=== PATIENT | male | born 1970 | race Hispanic/Latino ===

== ENCOUNTER 2018-07-29 13:58 | Emergency (ER) | payer BC ==
[2018-07-29 14:12] VITALS: RESP 18; BMI 39.0
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
[2018-07-29 15:37] LABS: BASO # 0.03 K/mm3 (0.0-2.0); BASO % 0.4 % (0.0-3.0); EOS # 0.2 (0.0-0.7); EOS % 2.1 % (1.5-5.0); GRAN # 5.07 (1.4-6.5); GRAN % 65.2 % (50.0-68.0); HEMOGLOBIN 14.9 g/dL (14.0-18.0); LYMPH # 1.9 (1.2-3.4); LYMPH % 24.6 % (22.0-35.0); MEAN CELL VOLUME 82.7 fl (80.0-105.0); MEAN CORPUSCULAR HGB CONC 33.8 g/dl (31.0-37.0); MEAN PLATELET VOLUME 10.9 fl (7.0-11.0); MONO # 0.6 (0.1-0.6); MONO % 7.7 % (1.0-6.0); RBC 5.33 10^6/uL (3.5-6.1); RED CELL DISTRIBUTION WIDTH 13.1 % (11.5-14.5); WHITE BLOOD COUNT 7.8 10^3/ul (4.5-11.0)
[2018-07-29 15:45] LABS: ALB/GLOB RATIO 1.3 (1.1-1.8); ALBUMIN 4.2 g/dL (3.0-4.8); ALT/SGPT 32 U/L (7-56); AST/SGOT 21 U/L (17-59); BLOOD UREA NITROGEN 19 mg/dL (7-21); CALCIUM 9.1 mg/dL (8.4-10.5); GFR NON-AFRICAN AMERICAN > 60; INR 1.09; PARTIAL THROMBOPLASTIN TIME 33.4 Seconds (25.1-36.5); PROTHROMBIN TIME 12.4 SECONDS (9.4-12.5)
[2018-07-29 17:03] VITALS: BP 132/86; PULSE 86; TEMP 97.5; O2SAT 100
--- NOTE | 2018-07-29 17:11 | US ---
HISTORY: Leg pain and swelling. Evaluate for DVT PHYSICIAN(S): Jerry Pitts MD. TECHNIQUE: Duplex sonography and color-flow Doppler with graded compression were used to evaluate the deep venous systems of both lower extremities. FINDINGS: The visualized deep venous systems of both lower extremities are sonographically normal and compressible. Normal wave forms and augmentation are seen. There is no sonographic evidence for deep venous thrombosis in the visualized segments of both lower extremities. IMPRESSION: No sonographic evidence for deep venous thrombosis in the visualized segments of both lower extremities.
== END 2018-07-29 17:42 | disposition home or self-care (01) ==
LOC: ED 13:58
DX: R25.2 Cramp and spasm (principal); R79.1 Abnormal coagulation profile; Z86.718 Personal history of other venous thrombosis and embolism; Z79.01 Long term (current) use of anticoagulants; Z74.01 Bed confinement status; Z99.3 Dependence on wheelchair

== ENCOUNTER 2019-01-06 12:41 | Inpatient (IN) | payer BC ==
[2019-01-06 12:55] VITALS: BMI 31.1
[2019-01-06 13:38] LABS: BASO # 0.03 K/mm3 (0.0-2.0); BASO % 0.4 % (0.0-3.0); EOS # 0.2 (0.0-0.7); EOS % 2.2 % (1.5-5.0); HEMOGLOBIN 15.1 g/dL (14.0-18.0); LYMPH # 2.1 (1.2-3.4); LYMPH % 24.4 % (22.0-35.0); MEAN CELL VOLUME 83.4 fl (80.0-105.0); MEAN CORPUSCULAR HEMOGLOBIN 28.1 pg (25.0-35.0); MEAN CORPUSCULAR HGB CONC 33.7 g/dl (31.0-37.0); MEAN PLATELET VOLUME 10.4 fl (7.0-11.0); MONO # 0.7 (0.1-0.6); RBC 5.37 10^6/uL (3.5-6.1); RED CELL DISTRIBUTION WIDTH 12.9 % (11.5-14.5); WHITE BLOOD COUNT 8.5 10^3/uL (4.5-11.0)
[2019-01-06 13:40] LABS: VENOUS BLOOD GAS BASE EXCESS 3.7 mmol/L (0.0-2.0); VENOUS BLOOD GAS PO2 44 mm/Hg (30-55); VENOUS BLOOD PH 7.39 (7.32-7.43)
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
[2019-01-06 13:49] LABS: INR 1.26; PARTIAL THROMBOPLASTIN TIME 43.4 Seconds (26.9-38.3)
[2019-01-06 13:50] LABS: ALB/GLOB RATIO 1.2 (1.1-1.8); ALBUMIN 4.3 g/dL (3.0-4.8); ALT/SGPT 26 U/L (7-56); AST/SGOT 19 U/L (17-59); BLOOD UREA NITROGEN 19 mg/dL (7-21); CALCIUM 9.4 mg/dL (8.4-10.5); GFR NON-AFRICAN AMERICAN > 60
--- NOTE | 2019-01-06 15:34 | CT ---
Date of service: 01/06/2019 PROCEDURE: CT HEAD WITHOUT CONTRAST. HISTORY: altered mental status COMPARISON: 01/09/2017 TECHNIQUE: Axial computed tomography images were obtained through the head/brain without intravenous contrast. Radiation dose: Total exam DLP = 785.42 mGy-cm. This CT exam was performed using one or more of the following dose reduction techniques: Automated exposure control, adjustment of the mA and/or kV according to patient size, and/or use of iterative reconstruction technique. FINDINGS: HEMORRHAGE: No intracranial hemorrhage. BRAIN: No mass effect or edema. Chronic encephalomalacia is seen in both frontal lobes the right temporal lobe and the periventricular white matter. VENTRICLES: Ventricular shunt catheter. No evidence of hydrocephalus. CALVARIUM: Previous craniotomy on the right side. PARANASAL SINUSES: Unremarkable as visualized. No significant inflammatory changes. MASTOID AIR CELLS: Unremarkable as visualized. No inflammatory changes. OTHER FINDINGS: None. IMPRESSION: No acute intracranial findings
--- NOTE | 2019-01-06 15:40 | RAD ---
Date of service: 01/06/2019 HISTORY: cough COMPARISON: No prior. FINDINGS: LUNGS: No active pulmonary disease. PLEURA: No significant pleural effusion identified, no pneumothorax apparent. CARDIOVASCULAR: No aortic atherosclerotic calcification present. Normal cardiac size. No pulmonary vascular congestion. OSSEOUS STRUCTURES: No significant abnormalities. VISUALIZED UPPER ABDOMEN: Normal. OTHER FINDINGS: None. IMPRESSION: No active disease.
[2019-01-06] MEDS ORDERED: levoFLOXacin 750 mg in D5W 150 ML BAG IVPB ONE (16:03)
[2019-01-06] MEDS ORDERED: levoFLOXacin 500 mg in D5W 500 MG/100 ML BAG IVPB SCH (16:15)
[2019-01-06 16:38] LABS: URINE BILIRUBIN NEGATIVE (NEGATIVE); URINE BLOOD SMALL (NEGATIVE); URINE GLUCOSE (UA) 100 mg/dL (NEGATIVE); URINE LEUKOCYTE ESTERASE MODERATE Leu/uL (NEGATIVE); URINE PROTEIN NEGATIVE mg/dL (<30 mg/dL); URINE UROBILINOGEN 0.2 E.U./dL (<1 E.U./dL)
[2019-01-06 16:40] LABS: URINE APPEARANCE SL CLOUDY (CLEAR); URINE COLOR YELLOW (YELLOW)
[2019-01-06 16:55] LABS: URINE BACTERIA LARGE /hpf; URINE RBC 0 - 2 /hpf (0-2); URINE WBC TNTC /hpf (0-6)
[2019-01-06] MEDS ORDERED: Dextrose 50% SYRINGE Inj (50 ml) IV PRN (17:26)
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
[2019-01-06] MEDS: Meropenem IV 1 gm in NS 1 GM/50 ML BAG IVPB SCH ×2 (20:17→21:02)
--- NOTE | 2019-01-06 21:00 | CARD ---
APPROVED REPORT Date of service: 01/06/2019 EKG Measurement Heart [id number] <Conclusion> Normal sinus rhythm Right bundle branch block Possible Inferior infarct, age undetermined Abnormal ECG
[2019-01-06] MEDS: Insulin Reg-MEDIUM-Coverage SC SCH (21:01)
[2019-01-06] MEDS: Nystatin 100,000 Units/gm Topical Pow(15 gm) TOP SCH (21:05)
[2019-01-06] MEDS: Dextrose 5%/0.45% NS 1,000 ML IV SCH (21:05)
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
[2019-01-07] MEDS: Meropenem IV 1 gm in NS 1 GM/50 ML BAG IVPB SCH ×3 (05:19→21:17)
[2019-01-07 06:47] LABS: BASO # 0.04 K/mm3 (0.0-2.0); BASO % 0.5 % (0.0-3.0); EOS # 0.2 (0.0-0.7); HEMOGLOBIN 13.8 g/dL (14.0-18.0); LYMPH # 1.8 (1.2-3.4); LYMPH % 22.6 % (22.0-35.0); MEAN CELL VOLUME 83.5 fl (80.0-105.0); MEAN CORPUSCULAR HEMOGLOBIN 27.4 pg (25.0-35.0); MEAN CORPUSCULAR HGB CONC 32.9 g/dl (31.0-37.0); MEAN PLATELET VOLUME 10.5 fl (7.0-11.0); MONO # 0.6 (0.1-0.6); MONO % 6.9 % (1.0-6.0); RBC 5.03 10^6/uL (3.5-6.1)
[2019-01-07 06:48] LABS: INR 1.43; PROTHROMBIN TIME 16.2 SECONDS (9.4-12.5)
[2019-01-07 06:53] LABS: IRON 61 ug/dL (45-180)
[2019-01-07 07:03] LABS: % IRON SATURATION 21 % (20-55); TOTAL IRON BINDING CAPACITY 292 ug/dL (261-462)
[2019-01-07 07:08] LABS: FREE T4 0.94 ng/dL (0.78-2.19)
[2019-01-07 07:11] LABS: BLOOD UREA NITROGEN 15 mg/dL (7-21); CALCIUM 8.7 mg/dL (8.4-10.5); GFR NON-AFRICAN AMERICAN > 60
[2019-01-07] MEDS: Insulin Reg-MEDIUM-Coverage SC SCH ×4 (08:43→21:17)
[2019-01-07] MEDS: Nystatin 100,000 Units/gm Topical Pow(15 gm) TOP SCH ×2 (09:56→17:15)
[2019-01-07] MEDS: Dextrose 5%/0.45% NS 1,000 ML IV SCH ×2 (09:57→21:18)
--- NOTE | 2019-01-07 11:39 | CP.PCM.CON ---
<Tee Pedraza - Last Filed: 01/07/19 11:36> History of Present Illness - History of Present Illness History of Present Illness: Tee Pedraza D.O. PGY-3, Internal Medicine Resident, Infectious Disease Consultation Note 48-year-old male with a past medical history of traumatic brain injury presented for complaints of altered mental status and cough. Infectious disease consultation was requested for the aforementioned. Patient was seen and examined at bedside. Patient's baseline is unknown but at this time he is verbal with some light dysarthria but understandable. Patient relates how he overall feels much better than he did when he presented yesterday. Patient states that he did have a bit of a cough but that it was nonproductive. Patient also states that he has had some burning on urination recently. Patient denies any fevers, chills, nausea, vomiting, diarrhea, constipation, lightheadedness, headache or any other complaints. Review of Systems - Review of Systems All systems: reviewed and no additional remarkable complaints except (as per HPI) Past Patient History - Infectious Disease Hx of Infectious Diseases: None - Tetanus Immunizations Tetanus Immunization: Unknown - Past Social History Smoking Status: Never Smoked - CARDIAC Hx Cardiac Disorders: No - PULMONARY Hx Respiratory Disorders: No Other/Comment: hx tracheostomy - NEUROLOGICAL Hx Neurological Disorder: Yes Hx Seizures: Yes Other/Comment: TBI 2010, brain shunt - HEENT Hx HEENT Problems: No - RENAL Hx Chronic Kidney Disease: No - ENDOCRINE/METABOLIC Hx Endocrine Disorders: No - HEMATOLOGICAL/ONCOLOGICAL Hx Blood Disorders: No - INTEGUMENTARY Hx Dermatological Problems: No - MUSCULOSKELETAL/RHEUMATOLOGICAL Hx Musculoskeletal Disorders: No Other/Comment: weakness, wheelchair bound - GASTROINTESTINAL Hx Gastrointestinal Disorders: No - GENITOURINARY/GYNECOLOGICAL Hx Genitourinary Disorders: No - PSYCHIATRIC Hx Psychophysiologic Disorder: No Hx Substance Use: No - SURGICAL HISTORY Hx Arteriovenous Shunt: Yes Other/Comment: bryan filter - left leg, brain surgery - ANESTHESIA Hx Anesthesia: No Hx Anesthesia Reactions: No Hx Malignant Hyperthermia: No Meds Allergies/Adverse Reactions: Allergies Allergy/AdvReac Type Severity Reaction Status Date / Time Penicillins Allergy ANAPHYLAXIS Verified 07/29/18 14:37 - Medications Medications: Current Medications Dextrose (Dextrose 50% Inj) 0 ml IV STAT PRN; Protocol PRN Reason: Hypoglycemia Protocol Glipizide (Glucotrol) 10 mg PO ACB [facility] Last Admin: 01/07/19 08:43 Dose: 10 mg Dextrose (Dextrose 5% In Water 1000 Ml) 1,000 mls @ 0 mls/hr IV .Q0M PRN; Protocol PRN Reason: Hypoglycemia Protocol Meropenem (Merrem Iv 1 Gm Premix) 1 gm in 50 mls @ 100 mls/hr IVPB Q8 [facility]; Protocol Stop: 01/15/19 18:16 Last Admin: 01/07/19 05:19 Dose: 100 mls/hr Doxycycline Hyclate 100 mg/ (Sodium Chloride) 100 mls @ 100 mls/hr IVPB Q12 [facility]; Protocol Stop: 01/15/19 18:06 Last Admin: 01/07/19 09:55 Dose: 100 mls/hr Dextrose/Sodium Chloride (Dextrose 5%/0.45% Ns 1000 Ml) 1,000 mls @ 80 mls/hr IV .[id number] [facility] Last Admin: 01/07/19 09:57 Dose: 80 mls/hr Insulin Human Regular (Humulin R Med) 0 units SC ACHS [facility]; Protocol Last Admin: 01/07/19 08:43 Dose: 3 unit Nystatin (Nystop Topical Powder) 1 gm TOP BID [facility] Last Admin: 01/07/19 09:56 Dose: 1 applic Physical Exam - Constitutional Appears: No Acute Distress - Head Exam Head Exam: absent: ATRAUMATIC, NORMOCEPHALIC - Eye Exam Eye Exam: absent: Scleral icterus - ENT Exam ENT Exam: Mucous Membranes Moist - Neck Exam Neck exam: Positive for: Normal Inspection - Respiratory Exam Respiratory Exam: Clear to Auscultation Bilateral. absent: Rales, Rhonchi, Wheezes - Cardiovascular Exam Cardiovascular Exam: +S1, +S2 - GI/Abdominal Exam GI & Abdominal Exam: Normal Bowel Sounds, Soft. absent: Tenderness - Extremities Exam Extremities exam: Negative for: calf tenderness - Neurological Exam Neurological exam: Alert - Skin Skin Exam: Dry, Warm Results - Vital Signs Recent Vital Signs: Last Vital Signs Temp 98.2 F 01/07/19 06:00 Pulse 77 01/07/19 06:00 Resp 18 01/07/19 06:00 BP 137/93 H 01/07/19 06:00 Pulse Ox 94 L 01/07/19 06:00 - Labs Result Diagrams: 01/07/19 06:00 01/07/19 06:00 Labs: Laboratory Results - last 24 hr 01/06/19 01/06/19 01/06/19 12:51 13:28 13:28 WBC 8.5 RBC 5.37 Hgb 15.1 Hct 44.8 MCV 83.4 MCH 28.1 MCHC 33.7 RDW 12.9 Plt Count 204 MPV 10.4 Neut % (Auto) 65.0 Lymph % (Auto) 24.4 [place] % (Auto) 8.0 H Eos % (Auto) 2.2 Baso % (Auto) 0.4 Lymph # (Auto) 2.1 [place] # (Auto) 0.7 H Eos # (Auto) 0.2 Baso # (Auto) 0.03 Absolute Neuts (auto) 5.50 ESR Retic Count PT 14.0 H INR 1.26 APTT 43.4 H pO2 VBG pH VBG pCO2 VBG HCO3 VBG Total CO2 VBG O2 Sat (Calc) VBG Base Excess VBG Potassium Glucose Lactate FiO2 Sodium Potassium Chloride Carbon Dioxide Anion Gap BUN Creatinine Est GFR ( Amer) Est GFR (Non-Af Amer) POC Glucose (mg/dL) 171 H Random Glucose Calcium Phosphorus Magnesium Iron TIBC % Saturation Total Bilirubin AST ALT Alkaline Phosphatase Total Protein Albumin Globulin Albumin/Globulin Ratio Prostate Specific Ag Free T4 TSH 3rd Generation Venous Blood Potassium Urine Color Urine Appearance Urine pH Ur Specific [place] Urine Protein Urine Glucose (UA) Urine Ketones Urine Blood Urine Nitrate Urine Bilirubin Urine Urobilinogen Ur Leukocyte Esterase Urine RBC Urine WBC Ur Epithelial Cells Urine Bacteria 01/06/19 01/06/19 01/06/19 13:28 13:30 16:30 WBC RBC Hgb Hct MCV MCH MCHC RDW Plt Count MPV Neut % (Auto) Lymph % (Auto) [place] % (Auto) Eos % (Auto) Baso % (Auto) Lymph # (Auto) [place] # (Auto) Eos # (Auto) Baso # (Auto) Absolute Neuts (auto) ESR Retic Count PT INR APTT pO2 44 VBG pH 7.39 VBG pCO2 49.0 VBG HCO3 29.7 H VBG Total CO2 31.2 H VBG O2 Sat (Calc) 82.6 H VBG Base Excess 3.7 H VBG Potassium 4.2 Glucose 212 H Lactate 1.0 FiO2 21.0 Sodium 139 139.0 Potassium 4.1 Chloride 104 104.0 Carbon Dioxide 28 Anion Gap 11 BUN 19 Creatinine 0.7 L Est GFR ( Amer) > 60 Est GFR (Non-Af Amer) > 60 POC Glucose (mg/dL) Random Glucose 201 H Calcium 9.4 Phosphorus 4.1 Magnesium 2.0 Iron TIBC % Saturation Total Bilirubin 0.4 AST 19 ALT 26 Alkaline Phosphatase 82 Total Protein 7.8 Albumin 4.3 Globulin 3.5 Albumin/Globulin Ratio 1.2 Prostate Specific Ag Free T4 TSH 3rd Generation Venous Blood Potassium 4.2 Urine Color Yellow Urine Appearance Sl cloudy Urine pH 6.0 Ur Specific [place] >= 1.030 Urine Protein Negative Urine Glucose (UA) 100 H Urine Ketones Negative Urine Blood Small H Urine Nitrate Positive H Urine Bilirubin Negative Urine Urobilinogen 0.2 Ur Leukocyte Esterase Moderate H Urine RBC 0 - 2 Urine WBC Tntc H Ur Epithelial Cells 1 - 3 Urine Bacteria Large 01/06/19 01/07/19 01/07/19 20:59 06:00 06:00 WBC 8.0 RBC 5.03 Hgb 13.8 L Hct 42.0 MCV 83.5 MCH 27.4 MCHC 32.9 RDW 13.0 Plt Count 190 MPV 10.5 Neut % (Auto) 68.0 Lymph % (Auto) 22.6 [place] % (Auto) 6.9 H Eos % (Auto) 2.0 Baso % (Auto) 0.5 Lymph # (Auto) 1.8 [place] # (Auto) 0.6 Eos # (Auto) 0.2 Baso # (Auto) 0.04 Absolute Neuts (auto) 5.41 ESR 12 Retic Count 1.47 PT INR APTT pO2 VBG pH VBG pCO2 VBG HCO3 VBG Total CO2 VBG O2 Sat (Calc) VBG Base Excess VBG Potassium Glucose Lactate FiO2 Sodium Potassium Chloride Carbon Dioxide Anion Gap BUN Creatinine Est GFR ( Amer) Est GFR (Non-Af Amer) POC Glucose (mg/dL) 224 H Random Glucose Calcium Phosphorus Magnesium Iron TIBC % Saturation Total Bilirubin AST ALT Alkaline Phosphatase Total Protein Albumin Globulin Albumin/Globulin Ratio Prostate Specific Ag 2.0 Free T4 0.94 TSH 3rd Generation 1.29 Venous Blood Potassium Urine Color Urine Appearance Urine pH Ur Specific [place] Urine Protein Urine Glucose (UA) Urine Ketones Urine Blood Urine Nitrate Urine Bilirubin Urine Urobilinogen Ur Leukocyte Esterase Urine RBC Urine WBC Ur Epithelial Cells Urine Bacteria 01/07/19 01/07/19 01/07/19 06:00 06:00 06:00 WBC RBC Hgb Hct MCV MCH MCHC RDW Plt Count MPV Neut % (Auto) Lymph % (Auto) [place] % (Auto) Eos % (Auto) Baso % (Auto) Lymph # (Auto) [place] # (Auto) Eos # (Auto) Baso # (Auto) Absolute Neuts (auto) ESR Retic Count PT 16.2 H INR 1.43 APTT pO2 VBG pH VBG pCO2 VBG HCO3 VBG Total CO2 VBG O2 Sat (Calc) VBG Base Excess VBG Potassium Glucose Lactate FiO2 Sodium 139 Potassium 4.0 Chloride 104 Carbon Dioxide 28 Anion Gap 12 BUN 15 Creatinine 0.8 Est GFR ( Amer) > 60 Est GFR (Non-Af Amer) > 60 POC Glucose (mg/dL) Random Glucose 200 H Calcium 8.7 Phosphorus Magnesium Iron 61 TIBC 292 % Saturation 21 Total Bilirubin AST ALT Alkaline Phosphatase Total Protein Albumin Globulin Albumin/Globulin Ratio Prostate Specific Ag Free T4 TSH 3rd Generation Venous Blood Potassium Urine Color Urine Appearance Urine pH Ur Specific [place] Urine Protein Urine Glucose (UA) Urine Ketones Urine Blood Urine Nitrate Urine Bilirubin Urine Urobilinogen Ur Leukocyte Esterase Urine RBC Urine WBC Ur Epithelial Cells Urine Bacteria 01/07/19 11:22 WBC RBC Hgb Hct MCV MCH MCHC RDW Plt Count MPV Neut % (Auto) Lymph % (Auto) [place] % (Auto) Eos % (Auto) Baso % (Auto) Lymph # (Auto) [place] # (Auto) Eos # (Auto) Baso # (Auto) Absolute Neuts (auto) ESR Retic Count PT INR APTT pO2 VBG pH VBG pCO2 VBG HCO3 VBG Total CO2 VBG O2 Sat (Calc) VBG Base Excess VBG Potassium Glucose Lactate FiO2 Sodium Potassium Chloride Carbon Dioxide Anion Gap BUN Creatinine Est GFR ( Amer) Est GFR (Non-Af Amer) POC Glucose (mg/dL) 103 Random Glucose Calcium Phosphorus Magnesium Iron TIBC % Saturation Total Bilirubin AST ALT Alkaline Phosphatase Total Protein Albumin Globulin Albumin/Globulin Ratio Prostate Specific Ag Free T4 TSH 3rd Generation Venous Blood Potassium Urine Color Urine Appearance Urine pH Ur Specific [place] Urine Protein Urine Glucose (UA) Urine Ketones Urine Blood Urine Nitrate Urine Bilirubin Urine Urobilinogen Ur Leukocyte Esterase Urine RBC Urine WBC Ur Epithelial Cells Urine Bacteria Assessment & Plan - Assessment and Plan (Free Text) Assessment: 48-year-old male with a past medical history of traumatic brain injury presented for complaints of altered mental status and cough. Infectious disease consultation was requested for the aforementioned. Plan: Complicated urinary tract infection Afebrile No leukocytosis No tachycardia No tachypnea Unclear baseline but at this time appears very functional Urine supports complicated urinary tract infection in a male At this time, will treat with doxycycline and meropenem now day 2 Urine cultures and blood cultures are pending We will check an HIV Urine Legionella and pro-calcitonin pending Dr. Gerard's note and recommendations appreciated We will follow with you Patient was seen and examined and case will be discussed with attending physician Thank you for the pleasure participating in the care of this interesting patient - Date & Time Date: 01/07/19 Time: 10:15 <Dino Alanis - Last Filed: 01/07/19 14:07> Meds - Medications Medications: Current Medications Dextrose (Dextrose 50% Inj) 0 ml IV STAT PRN; Protocol PRN Reason: Hypoglycemia Protocol Glipizide (Glucotrol) 10 mg PO ACB [facility] Last Admin: 01/07/19 08:43 Dose: 10 mg Dextrose (Dextrose 5% In Water 1000 Ml) 1,000 mls @ 0 mls/hr IV .Q0M PRN; Protocol PRN Reason: Hypoglycemia Protocol Meropenem (Merrem Iv 1 Gm Premix) 1 gm in 50 mls @ 100 mls/hr IVPB Q8 [facility]; Protocol Stop: 01/15/19 18:16 Last Admin: 01/07/19 05:19 Dose: 100 mls/hr Dextrose/Sodium Chloride (Dextrose 5%/0.45% Ns 1000 Ml) 1,000 mls @ 80 mls/hr IV .[id number] [facility] Last Admin: 01/07/19 09:57 Dose: 80 mls/hr Insulin Human Regular (Humulin R Med) 0 units SC ACHS [facility]; Protocol Last Admin: 01/07/19 13:40 Dose: Not Given Nystatin (Nystop Topical Powder) 1 gm TOP BID [facility] Last Admin: 01/07/19 09:56 Dose: 1 applic Results - Vital Signs Recent Vital Signs: Last Vital Signs Temp 98.2 F 01/07/19 06:00 Pulse 77 01/07/19 06:00 Resp 18 01/07/19 06:00 BP 137/93 H 01/07/19 06:00 Pulse Ox 94 L 01/07/19 06:00 - Labs Result Diagrams: 01/07/19 06:00 01/07/19 06:00 Labs: Laboratory Results - last 24 hr 01/06/19 01/06/19 01/07/19 16:30 20:59 06:00 WBC RBC Hgb Hct MCV MCH MCHC RDW Plt Count MPV Neut % (Auto) Lymph % (Auto) [place] % (Auto) Eos % (Auto) Baso % (Auto) Lymph # (Auto) [place] # (Auto) Eos # (Auto) Baso # (Auto) Absolute Neuts (auto) ESR Retic Count PT INR Sodium Potassium Chloride Carbon Dioxide Anion Gap BUN Creatinine Est GFR ( Amer) Est GFR (Non-Af Amer) POC Glucose (mg/dL) 224 H Random Glucose Calcium Iron TIBC % Saturation Ferritin Prostate Specific Ag 2.0 Vitamin B12 Folate Free T4 0.94 TSH 3rd Generation 1.29 Urine Color Yellow Urine Appearance Sl cloudy Urine pH 6.0 Ur Specific [place] >= 1.030 Urine Protein Negative Urine Glucose (UA) 100 H Urine Ketones Negative Urine Blood Small H Urine Nitrate Positive H Urine Bilirubin Negative Urine Urobilinogen 0.2 Ur Leukocyte Esterase Moderate H Urine RBC 0 - 2 Urine WBC Tntc H Ur Epithelial Cells 1 - 3 Urine Bacteria Large 01/07/19 01/07/19 01/07/19 06:00 06:00 06:00 WBC 8.0 RBC 5.03 Hgb 13.8 L Hct 42.0 MCV 83.5 MCH 27.4 MCHC 32.9 RDW 13.0 Plt Count 190 MPV 10.5 Neut % (Auto) 68.0 Lymph % (Auto) 22.6 [place] % (Auto) 6.9 H Eos % (Auto) 2.0 Baso % (Auto) 0.5 Lymph # (Auto) 1.8 [place] # (Auto) 0.6 Eos # (Auto) 0.2 Baso # (Auto) 0.04 Absolute Neuts (auto) 5.41 ESR 12 Retic Count 1.47 PT 16.2 H INR 1.43 Sodium 139 Potassium 4.0 Chloride 104 Carbon Dioxide 28 Anion Gap 12 BUN 15 Creatinine 0.8 Est GFR ( Amer) > 60 Est GFR (Non-Af Amer) > 60 POC Glucose (mg/dL) Random Glucose 200 H Calcium 8.7 Iron TIBC % Saturation Ferritin 211.0 Prostate Specific Ag Vitamin B12 701 Folate 8.8 Free T4 TSH 3rd Generation Urine Color Urine Appearance Urine pH Ur Specific [place] Urine Protein Urine Glucose (UA) Urine Ketones Urine Blood Urine Nitrate Urine Bilirubin Urine Urobilinogen Ur Leukocyte Esterase Urine RBC Urine WBC Ur Epithelial Cells Urine Bacteria 01/07/19 01/07/19 06:00 11:22 WBC RBC Hgb Hct MCV MCH MCHC RDW Plt Count MPV Neut % (Auto) Lymph % (Auto) [place] % (Auto) Eos % (Auto) Baso % (Auto) Lymph # (Auto) [place] # (Auto) Eos # (Auto) Baso # (Auto) Absolute Neuts (auto) ESR Retic Count PT INR Sodium Potassium Chloride Carbon Dioxide Anion Gap BUN Creatinine Est GFR ( Amer) Est GFR (Non-Af Amer) POC Glucose (mg/dL) 103 Random Glucose Calcium Iron 61 TIBC 292 % Saturation 21 Ferritin Prostate Specific Ag Vitamin B12 Folate Free T4 TSH 3rd Generation Urine Color Urine Appearance Urine pH Ur Specific [place] Urine Protein Urine Glucose (UA) Urine Ketones Urine Blood Urine Nitrate Urine Bilirubin Urine Urobilinogen Ur Leukocyte Esterase Urine RBC Urine WBC Ur Epithelial Cells Urine Bacteria Attending/Attestation - Attestation I have personally seen and examined this patient.: Yes I have fully participated in the care of the patient.: Yes I have reviewed all pertinent clinical information: Yes
[2019-01-07 12:59] LABS: FOLATE 8.8 ng/mL
[2019-01-08] MEDS: Meropenem IV 1 gm in NS 1 GM/50 ML BAG IVPB SCH ×3 (05:14→21:14)
[2019-01-08] MEDS: Insulin Reg-MEDIUM-Coverage SC SCH ×4 (08:02→21:09)
[2019-01-08 08:16] LABS: INR 1.35; PROTHROMBIN TIME 15.3 SECONDS (9.4-12.5)
[2019-01-08] MEDS: Dextrose 5%/0.45% NS 1,000 ML IV SCH ×2 (09:45→22:35)
[2019-01-08] MEDS: Nystatin 100,000 Units/gm Topical Pow(15 gm) TOP SCH ×2 (09:47→17:23)
--- NOTE | 2019-01-08 16:03 | CP.PCM.PN ---
<Tee Pedraza - Last Filed: 01/08/19 16:00> Subjective - Date & Time of Evaluation Date of Evaluation: 01/08/19 Time of Evaluation: 10:10 - Subjective Subjective: Tee Pedraza D.O. PGY-3, Internal Medicine Resident, Infectious Disease Progress Note 48-year-old male with a past medical history of traumatic brain injury presented for complaints of altered mental status and cough. Infectious disease con sultation was requested for the aforementioned. Patient was seen and examined at bedside. Resting comfortably. States had discomfort lying flat for MRI. Otherwise doing well. Objective - Vital Signs/Intake and Output Vital Signs (last 24 hours): Temp Pulse Resp BP Pulse Ox 98 F 74 19 135/86 94 L 01/08/19 06:00 01/08/19 06:00 01/08/19 06:00 01/08/19 06:00 01/08/19 06:00 - Medications Medications: Current Medications Dextrose (Dextrose 50% Inj) 0 ml IV STAT PRN; Protocol PRN Reason: Hypoglycemia Protocol Glipizide (Glucotrol) 10 mg PO ACB [facility] Last Admin: 01/08/19 08:03 Dose: 10 mg Dextrose (Dextrose 5% In Water 1000 Ml) 1,000 mls @ 0 mls/hr IV .Q0M PRN; Protocol PRN Reason: Hypoglycemia Protocol Meropenem (Merrem Iv 1 Gm Premix) 1 gm in 50 mls @ 100 mls/hr IVPB Q8 [facility]; Protocol Stop: 01/15/19 18:16 Last Admin: 01/08/19 13:32 Dose: 100 mls/hr Dextrose/Sodium Chloride (Dextrose 5%/0.45% Ns 1000 Ml) 1,000 mls @ 80 mls/hr IV .[id number] [facility] Last Admin: 01/08/19 09:45 Dose: 80 mls/hr Insulin Human Regular (Humulin R Med) 0 units SC ACHS [facility]; Protocol Last Admin: 01/08/19 12:12 Dose: Not Given Nystatin (Nystop Topical Powder) 0 gm TOP BID [facility] Last Admin: 01/08/19 09:47 Dose: 1 unit Warfarin Sodium (Coumadin) 10 mg PO 1800 ONE; Protocol Stop: 01/08/19 18:01 - Labs Labs: 01/07/19 06:00 01/07/19 06:00 PT 15.3 SECONDS (9.4-12.5) H 01/08/19 07:00 INR 1.35 01/08/19 07:00 APTT 43.4 Seconds (26.9-38.3) H 01/06/19 13:28 - Constitutional Appears: No Acute Distress - Head Exam Head Exam: absent: ATRAUMATIC, NORMOCEPHALIC - Eye Exam Eye Exam: absent: Scleral icterus - ENT Exam ENT Exam: Mucous Membranes Moist - Neck Exam Neck exam: Positive for: Normal Inspection - Respiratory Exam Respiratory Exam: Clear to Auscultation Bilateral. absent: Rales, Rhonchi, Whee zes - Cardiovascular Exam Cardiovascular Exam: +S1, +S2 - GI/Abdominal Exam GI & Abdominal Exam: Normal Bowel Sounds, Soft. absent: Tenderness - Extremities Exam Extremities exam: Negative for: calf tenderness - Neurological Exam Neurological exam: Alert, Awake, slightly dysarthric but understandable - Skin Skin Exam: Dry, Warm Assessment and Plan - Assessment and Plan (Free Text) Assessment: 48-year-old male with a past medical history of traumatic brain injury presented for complaints of altered mental status and cough. Infectious disease consultation was requested for the aforementioned. Plan: Complicated urinary tract infection Continue meropenem now day 2 Discontinued doxycycline Urine cultures show sensitive klebsiella HIV negative Urine Legionella negative Pro-calcitonin negative We will follow with you Patient was seen and examined and case will be discussed with attending physician Thank you for the pleasure participating in the care of this interesting patient <Dino Alanis - Last Filed: 01/08/19 17:25> Objective - Vital Signs/Intake and Output Vital Signs (last 24 hours): Temp Pulse Resp BP Pulse Ox 98.2 F 86 16 128/83 96 01/08/19 14:00 01/08/19 14:00 01/08/19 14:00 01/08/19 14:00 01/08/19 14:00 - Medications Medications: Current Medications Dextrose (Dextrose 50% Inj) 0 ml IV STAT PRN; Protocol PRN Reason: Hypoglycemia Protocol Glipizide (Glucotrol) 10 mg PO ACB [facility] Last Admin: 01/08/19 08:03 Dose: 10 mg Dextrose (Dextrose 5% In Water 1000 Ml) 1,000 mls @ 0 mls/hr IV .Q0M PRN; Protocol PRN Reason: Hypoglycemia Protocol Meropenem (Merrem Iv 1 Gm Premix) 1 gm in 50 mls @ 100 mls/hr IVPB Q8 [facility]; Protocol Stop: 01/15/19 18:16 Last Admin: 01/08/19 13:32 Dose: 100 mls/hr Dextrose/Sodium Chloride (Dextrose 5%/0.45% Ns 1000 Ml) 1,000 mls @ 80 mls/hr IV .[id number] [facility] Last Admin: 01/08/19 09:45 Dose: 80 mls/hr Insulin Human Regular (Humulin R Med) 0 units SC ACHS [facility]; Protocol Last Admin: 01/08/19 12:12 Dose: Not Given Nystatin (Nystop Topical Powder) 0 gm TOP BID [facility] Last Admin: 01/08/19 09:47 Dose: 1 unit Warfarin Sodium (Coumadin) 10 mg PO 1800 ONE; Protocol Stop: 01/08/19 18:01 - Labs Labs: 01/07/19 06:00 01/07/19 06:00 PT 15.3 SECONDS (9.4-12.5) H 01/08/19 07:00 INR 1.35 01/08/19 07:00 APTT 43.4 Seconds (26.9-38.3) H 01/06/19 13:28 Attending/Attestation - Attestation I have personally seen and examined this patient.: Yes I have fully participated in the care of the patient.: Yes I have reviewed all pertinent clinical information, including history, physical exam and plan: Yes
[2019-01-09] MEDS: Meropenem IV 1 gm in NS 1 GM/50 ML BAG IVPB SCH ×3 (05:06→21:19)
[2019-01-09 07:42] LABS: INR 1.47; PROTHROMBIN TIME 16.6 SECONDS (9.4-12.5)
[2019-01-09] MEDS: Insulin Reg-MEDIUM-Coverage SC SCH ×3 (08:22→17:20)
--- NOTE | 2019-01-09 10:10 | CP.PCM.PN ---
<Tee Pedraza - Last Filed: 01/09/19 10:06> Subjective - Date & Time of Evaluation Date of Evaluation: 01/09/19 Time of Evaluation: 07:15 - Subjective Subjective: Tee Pedraza D.O. PGY-3, Internal Medicine Resident, Infectious Disease Progress Note 48-year-old male with a past medical history of traumatic brain injury presented for complaints of altered mental status and cough. Infectious disease con sultation was requested for the aforementioned. Patient was seen and examined at bedside. Improving everyday. States feeling better. No acute complaints. Objective - Vital Signs/Intake and Output Vital Signs (last 24 hours): Temp Pulse Resp BP Pulse Ox 98.2 F 74 18 133/84 96 01/09/19 06:00 01/09/19 06:00 01/09/19 06:00 01/09/19 06:00 01/09/19 06:00 Intake and Output: 01/09/19 01/09/19 06:59 18:59 Intake Total 480 Balance 480 - Medications Medications: Current Medications Dextrose (Dextrose 50% Inj) 0 ml IV STAT PRN; Protocol PRN Reason: Hypoglycemia Protocol Glipizide (Glucotrol) 10 mg PO ACB SHIRIN Last Admin: 01/09/19 08:22 Dose: 10 mg Dextrose (Dextrose 5% In Water 1000 Ml) 1,000 mls @ 0 mls/hr IV .Q0M PRN; Protocol PRN Reason: Hypoglycemia Protocol Meropenem (Merrem Iv 1 Gm Premix) 1 gm in 50 mls @ 100 mls/hr IVPB Q8 SHIRIN; Protocol Stop: 01/15/19 18:16 Last Admin: 01/09/19 05:06 Dose: 100 mls/hr Dextrose/Sodium Chloride (Dextrose 5%/0.45% Ns 1000 Ml) 1,000 mls @ 80 mls/hr IV .[id number] SHIRIN Last Admin: 01/08/19 22:35 Dose: 80 mls/hr Insulin Human Regular (Humulin R Med) 0 units SC ACHS SHIRIN; Protocol Last Admin: 01/09/19 08:22 Dose: 1 unit Nystatin (Nystop Topical Powder) 0 gm TOP BID SHIRIN Last Admin: 01/08/19 17:23 Dose: 1 unit - Labs Labs: 01/07/19 06:00 01/07/19 06:00 PT 16.6 SECONDS (9.4-12.5) H 01/09/19 07:20 INR 1.47 01/09/19 07:20 APTT 43.4 Seconds (26.9-38.3) H 01/06/19 13:28 - Constitutional Appears: No Acute Distress, pleasant male - Head Exam Head Exam: absent: ATRAUMATIC, NORMOCEPHALIC - Eye Exam Eye Exam: absent: Scleral icterus - ENT Exam ENT Exam: Mucous Membranes Moist - Neck Exam Neck exam: Positive for: Normal Inspection - Respiratory Exam Respiratory Exam: Clear to Auscultation Bilateral. absent: Rales, Rhonchi, Wheezes - Cardiovascular Exam Cardiovascular Exam: +S1, +S2 - GI/Abdominal Exam GI & Abdominal Exam: Normal Bowel Sounds, Soft. absent: Tenderness - Extremities Exam Extremities exam: Negative for: calf tenderness - Neurological Exam Neurological exam: Alert, Awake, slightly dysarthric but understandable - Skin Skin Exam: Dry, Warm Assessment and Plan - Assessment and Plan (Free Text) Assessment: 48-year-old male with a past medical history of traumatic brain injury presented for complaints of altered mental status and cough. Infectious disease consultation was requested for the aforementioned. Plan: Complicated urinary tract infection Continue meropenem now day 3 UCx grew klebsiella BCx negative 2/2 day 2 Once ready for discharge can finish course of PO ciprofloxacin, QIAN <0.25 We will follow with you Patient was seen and examined and case will be discussed with attending physician Thank you for the pleasure participating in the care of this interesting patient <Dino Alanis - Last Filed: 01/09/19 12:07> Objective - Vital Signs/Intake and Output Vital Signs (last 24 hours): Temp Pulse Resp BP Pulse Ox 98.2 F 74 18 133/84 96 01/09/19 06:00 01/09/19 06:00 01/09/19 06:00 01/09/19 06:00 01/09/19 06:00 Intake and Output: 01/09/19 01/09/19 06:59 18:59 Intake Total 480 Output Total 100 Balance 480 -100 - Medications Medications: Current Medications Dextrose (Dextrose 50% Inj) 0 ml IV STAT PRN; Protocol PRN Reason: Hypoglycemia Protocol Glipizide (Glucotrol) 10 mg PO ACB [facility] Last Admin: 01/09/19 08:22 Dose: 10 mg Meropenem (Merrem Iv 1 Gm Premix) 1 gm in 50 mls @ 100 mls/hr IVPB Q8 SHIRIN; Protocol Stop: 01/15/19 18:16 Last Admin: 01/09/19 05:06 Dose: 100 mls/hr Insulin Human Regular (Humulin R Med) 0 units SC ACHS SHIRIN; Protocol Last Admin: 01/09/19 11:40 Dose: Not Given Nystatin (Nystop Topical Powder) 0 gm TOP BID SHIRIN Last Admin: 01/09/19 11:47 Dose: 1 unit Warfarin Sodium (Coumadin) 5 mg PO 1800 SHIRIN; Protocol - Labs Labs: 01/07/19 06:00 01/07/19 06:00 PT 16.6 SECONDS (9.4-12.5) H 01/09/19 07:20 INR 1.47 01/09/19 07:20 APTT 43.4 Seconds (26.9-38.3) H 01/06/19 13:28 Attending/Attestation - Attestation I have personally seen and examined this patient.: Yes I have fully participated in the care of the patient.: Yes I have reviewed all pertinent clinical information, including history, physical exam and plan: Yes
[2019-01-09] MEDS: Nystatin 100,000 Units/gm Topical Pow(15 gm) TOP SCH ×2 (11:47→17:41)
--- NOTE | 2019-01-10 02:58 | CON ---
DATE: 01/09/2019 GENITOURINARY CONSULTATION CHIEF COMPLAINT: Altered mental status. HISTORY OF PRESENT ILLNESS: This is a 48-year-old male with a history of traumatic brain injury, who was seen by his primary physician. The patient was noted to have a deterioration in his normal mental status. He was obtunded, lethargic, and groggy. He was admitted to the hospital for further workup and evaluation. He has a history of a productive cough for a week prior to admission. He also has a history of urinary urgency and incontinence, likely neurogenic bladder from the prior brain injury. A consultation was requested for possible urinary infection and neurogenic bladder symptoms. PAST MEDICAL HISTORY: Significant for traumatic brain injury with craniotomy, R[employer] shunt, diabetes, obesity, DVT. ALLERGIES: ALLERGIC TO PENICILLIN. MEDICATIONS: Currently include Coumadin, glipizide, insulin coverage, Merrem, nystatin powder. FAMILY HISTORY: Noncontributory for this admission. SOCIAL HISTORY: The patient lives at home with his mother. No current or recent smoking or EtOH use. REVIEW OF SYSTEMS: These are obtained from the chart as well as the patient's mother who is present during the exam. Twelve-point review of systems was obtained. Positive for urinary frequency, urgency, and incontinence. Positive for fecal incontinence, sometimes constipation. Positive for lethargy. Positive for cough and shortness of breath. Positive for weakness, difficulty ambulating, loss of balance. Positive for depression. Other systems are negative. PHYSICAL EXAMINATION: GENERAL: The patient is awake and answering some questions. He is in no acute distress. VITAL SIGNS: He has been afebrile, temp of 98.2, pulse of 74, BP 133/84, respirations of 18. NECK: Supple. There is no adenopathy. CHEST: Reveals a normal inspiratory effort. CARDIAC: Shows positive S1 and S2. There is mild peripheral edema noted. ABDOMEN: Soft, nontender, nondistended. There is no hepatosplenomegaly or costovertebral angle tenderness. GENITOURINARY: The patient is wearing Depends, it is mildly saturated with clear urine. Phallus is normal. Scrotum is normal. There is a slight erythematous rash. Testes are bilaterally descended, nontender, no masses. Epididymides are normal. EXTREMITIES: There is trace edema. No cyanosis noted. LABORATORY EXAM: WBC count 8. GFR is greater than 60. Urinalysis showed small blood, positive nitrites, 0-2 RBC's, too numerous to count WBC's, negative for protein. On radiologic exam, no pertinent urologic imaging was done. IMPRESSION AND PLAN: This is a 48-year-old male admitted with altered mental status and likely urinary tract infection. His urine culture did come back with Klebsiella pneumoniae. The patient is receiving antibiotics for this. The patient's mental status appears to have improved with treatment of his urinary infection. I discussed with his mother, the patient does have a history of frequency, urgency, and urge incontinence. He does also go to the bathroom spontaneously and his mother reports him voiding good amounts of urine with a good flow. Given his age, it is unlikely any obstruction from his prostate. I discussed his voiding issues with his mother who reports this is likely from his brain injury as it started after that happened. I discussed with her the plan would be to continue him with Depends as needed. When the patient's infection has cleared and he has returned to his baseline, we can evaluate him in the office to check postvoid residual, although his bladder appears to be emptying completely at this time. I also discussed with her the possibility of treatment for urgency and urge incontinence. She understands and agrees and would like to follow as an outpatient. I discussed with her and she will call the office when the patient has returned to his baseline condition and we will set up an appointment for her to bring him in for further evaluation of his voiding issues. For now, we would finish treatment for likely cystitis and treatment of any other acute causes of his altered mental status. Thank you for allowing me to participate in the care of this patient. Elvis Feldman MD
[2019-01-10] MEDS: Meropenem IV 1 gm in NS 1 GM/50 ML BAG IVPB SCH ×3 (05:22→22:01)
[2019-01-10] MEDS: Insulin Reg-MEDIUM-Coverage SC SCH ×5 (05:40→21:59)
[2019-01-10] MEDS: Nystatin 100,000 Units/gm Topical Pow(15 gm) TOP SCH ×2 (09:40→17:56)
--- NOTE | 2019-01-10 11:26 | PN ---
DATE: 01/08/2019 SUBJECTIVE: The patient was seen this morning in room 574, bed 2 with his mother at the bedside. Case was discussed earlier at length with Infectious Disease center lead consultant, Dr. Alanis. The patient has clinically improved, more awake and alert. Infectious Disease requests urology evaluation calling this is complex urinary tract infection in that it is a male patient, although, he is essentially bed confined, obese, and diabetic. So, we will ask Dr. Feldman to evaluate if possible. We will also ask the patient to be out of bed, diabetic education, physical therapy, follow INR for his history of severe extensive DVT. ( He has an IVC filter in place). We will continue antibiotics for now, check INR, and follow closely. Ant Quiros MD MTDTalya
--- NOTE | 2019-01-10 11:44 | PN ---
DATE: 01/09/2019 SUBJECTIVE: The patient was seen this Saturday morning with his mother at the bedside in room 574, bed 1. He is much more awake, alert and clear. Mental status is almost back to his usual self, with him being more awake and talkative after this episode which we felt to be related to urinary tract infection. We are continuing on the IV antibiotics. I spoke with transplant case manager and social workers at length regarding hopes for additional physical therapy. I was hoping for acute rehab at [facility] at their traumatic brain injury unit in view of his history and recent decline, and needing the benefit of aggressive physical therapy intervention. We are still awaiting for insurance approval, if not [facility], perhaps our own Transitional Care Unit and if that turns out not be an option and there is no acceptable facility, the patient's next best option might be home with visiting nurse and physical therapy. I spoke with CUSTOMER ACCOUNT SPECIALIST/case management again later in the day as we wait for an update. Will follow. Ant Quiros MD JANNETTE
--- NOTE | 2019-01-10 18:01 | PN ---
DATE: 01/10/2019 SUBJECTIVE: The patient was seen this Saturday morning in room 574, bed 1. Moments later, his mother arrived and I spoke with her by telephone. Today, he remains clinically improved, more awake. I spoke with the case resolution specialist and child protective services social worker yesterday. We are trying to get him into an acute rehab facility at [facility] for their traumatic brain injury unit. Our second alternative would be transistional care unit at [facility]. I doubt that the family would be interested in another facility, so our next likely step would be home with visiting nurse and physical therapy. The patient is cared for by his mother and sister. We will continue IV antibiotics for now for urinary tract infection and then look for discharge on Saturday when case resolution specialist and child protective services social worker are available as well as the patient's mom and sister. Ant Quiros MD
--- NOTE | 2019-01-11 00:17 | PN ---
DATE: 01/10/2019 SUBJECTIVE: The patient is in bed, in no acute distress, nontoxic. No fevers. No chills. PHYSICAL EXAMINATION: VITAL SIGNS: Temperature is 98, blood pressure is 140/80, respiratory rate of 18. HEENT: Unremarkable. NECK: Supple. LUNGS: Have decreased breath sounds. HEART: Normal S1 and S2. ABDOMEN: Soft, nontender. LABORATORY DATA: Laboratory examination reveals a white count of 8, hemoglobin of 13, platelets of 190. Chemistries are noted. Serology is noted. Microbiology is reviewed, with Klebsiella in the urine. Dr. Quiros's note is reviewed. Possible discharge on Saturday. Review of orders reveals the patient to be on meropenem, which requires renewal. ASSESSMENT AND PLAN: This is a 48-year-old male with traumatic brain injury, change in mental status, with Klebsiella in urine as the source. Negative blood cultures. On meropenem, day #4. He will be able to switch to oral Cipro upon discharge. Urology evaluation discussed with Dr. Ant Quiros. The patient does have a normal prostate-specific antigen. Dino Alanis MD
[2019-01-11] MEDS: Meropenem IV 1 gm in NS 1 GM/50 ML BAG IVPB SCH ×3 (05:27→21:24)
[2019-01-11] MEDS: Nystatin 100,000 Units/gm Topical Pow(15 gm) TOP SCH ×2 (10:01→17:36)
[2019-01-11] MEDS: Insulin Reg-MEDIUM-Coverage SC SCH ×3 (12:03→21:44)
--- NOTE | 2019-01-11 12:19 | PN ---
DATE: 01/11/2019 SUBJECTIVE: The patient is in bed, was seen earlier today. No fevers and no chills. PHYSICAL EXAMINATION: VITAL SIGNS: Temperature of 98, blood pressure is 112/70, respiratory rate of 16. HEENT: Unremarkable. NECK: Supple. LUNGS: Have decreased breath sounds. HEART: Normal S1, S2. ABDOMEN: Soft, nontender. LABORATORY EXAMINATION: Reviewed, white count of 8, and chemistries are noted. HIV is negative. Legionella antigen is negative. Microbiology reveals Klebsiella in the urine and is sensitive. ASSESSMENT AND PLAN: This is a 48-year-old male with traumatic brain injury, change in mental status, Klebsiella in urine as the source and day #5 of meropenem with complete 7-10 days, maybe able to switch to p.o. Cipro for the Klebsiella is sensitive. Should have urology evaluation and of note is that the patient's PSA is 2. Today is day #5 of 7-10 days. Maybe able to switch to p.o. Cipro upon discharge. Dino Alanis MD
--- NOTE | 2019-01-11 20:20 | PN ---
DATE: 01/11/2019 SUBJECTIVE: The patient was seen this Saturday morning in room 574, bed 1. Sitting in bed, more awake, alert and clear. Close to his baseline mental status. Speech is a bit slurred as is the case in baseline, perhaps a bit slower in speech and thought than 6 months ago, but improved dramatically from admission. PHYSICAL EXAMINATION CARDIOPULMONARY: Heart; regular and not tachycardic. LUNGS: Shows good aeration in both right and left lung weiss. ABDOMEN: Overweight. EXTREMITIES: Show no edema. IMPRESSION 1. Urinary tract infection with altered mental status on presentation. 2. Obesity. 3. Diabetes. 4. Traumatic brain injury 10 years ago. PLAN: With continuing IV antibiotics for now. Patient should be done with antibiotics soon. Tomorrow, Saturday, I will speak with case management and see how we have progressed with arranging for acute rehab at [facility]. If not, our next best option would be Transitional Care Unit and if no facility acceptable to the patient and his financial engineer is an option, then our next best step would be home with a visiting nurse and physical therapy. Ant Quiros MD JANNETTE
[2019-01-11 22:29] VITALS: RESP 18
[2019-01-12] MEDS: Meropenem IV 1 gm in NS 1 GM/50 ML BAG IVPB SCH ×2 (05:53→13:43)
[2019-01-12 07:48] LABS: BASO # 0.04 K/mm3 (0.0-2.0); BASO % 0.5 % (0.0-3.0); EOS # 0.3 (0.0-0.7); EOS % 3.3 % (1.5-5.0); HEMOGLOBIN 14.5 g/dL (14.0-18.0); LYMPH # 1.9 (1.2-3.4); LYMPH % 23.7 % (22.0-35.0); MEAN CELL VOLUME 83.5 fl (80.0-105.0); MEAN CORPUSCULAR HEMOGLOBIN 28.2 pg (25.0-35.0); MEAN CORPUSCULAR HGB CONC 33.8 g/dl (31.0-37.0); MEAN PLATELET VOLUME 10.6 fl (7.0-11.0); MONO # 0.7 (0.1-0.6); MONO % 8.1 % (1.0-6.0); RBC 5.14 10^6/uL (3.5-6.1); WHITE BLOOD COUNT 8.1 10^3/uL (4.5-11.0)
[2019-01-12 08:02] LABS: BLOOD UREA NITROGEN 14 mg/dL (7-21); CALCIUM 8.8 mg/dL (8.4-10.5); GFR NON-AFRICAN AMERICAN > 60
[2019-01-12] MEDS: Insulin Reg-MEDIUM-Coverage SC SCH ×3 (08:04→16:30)
[2019-01-12] MEDS: Nystatin 100,000 Units/gm Topical Pow(15 gm) TOP SCH ×2 (10:30→19:11)
[2019-01-12 15:10] VITALS: BP 134/83; PULSE 80; TEMP 98.2; O2SAT 94
--- NOTE | 2019-01-13 00:38 | PN ---
DATE: 01/12/2019 SUBJECTIVE: The patient is in bed, in no acute distress, nontoxic. The patient was seen early this morning in room 574, bed 1. He is doing well. PHYSICAL EXAMINATION: VITAL SIGNS: Temperature of 98, blood pressure is 130/80, respiratory rate 16. HEENT: Unremarkable. NECK: Supple. LUNGS: Have decreased breath sounds. HEART: Normal S1, S2. ABDOMEN: Soft, nontender. LABORATORY EXAMINATION: Reveals a white count of 8.1, hemoglobin of 14, platelets of 207. Chemistries are noted, and urinalysis is noted. Serology, HIV is negative. Urine cultures negative. Microbiology reveals Klebsiella is noted. ASSESSMENT AND PLAN: This is a 48-year-old male who was seen early this morning in room 574, bed 1, status post history of traumatic brain injury, change in mental status, Klebsiella in the urine, day #6 of meropenem with complete 7 to 10 days and recently changed to p.o. Cipro to complete therapy. Today is day #6 of 7 to 10 days. Dino Alanis MD
--- NOTE | 2019-01-14 02:54 | DS ---
HOSPITAL COURSE: The patient is a 48-year-old male who was admitted with altered mental status. He was found to be obtunded, lethargic, and groggy when at home. He is known to have a history of traumatic brain injury, yzh-hmkapuo-sxhkaduoi diabetes mellitus, developed morbid obesity because of his traumatic brain injury and decreased activity. THE PATIENT IS KNOWN TO BE ALLERGIC TO PENICILLIN. He was admitted, found to have a urinary tract infection which was treated with antibiotics and the patient improved, arrangements have been made [facility], however, his mother and daughter who care for him and give him daily encouragement would find it difficult to travel such a distance to [place], therefore, he is to be admitted to the Transitional Care Unit here at the [facility]. So, he will be transferred when a bed becomes available and we will follow him on the Transitional Care Unit. FINAL DIAGNOSES: 1. Acute mental status secondary to urinary tract infection. 2. Bronchitis. 3. Tda-ziigdmw-owfbbytjg diabetes mellitus. 4. Obesity. 5. Urinary tract infection secondary to Klebsiella pneumoniae. Jas Quiros MD
== END 2019-01-12 19:23 | DRG 689 ==
LOC: ED 12:41 → ERH 16:03 → 5RSO 17:34
PROVIDERS: ADMIT Internal Medicine; ATTEND Internal Medicine
DX: N39.0 Urinary tract infection, site not specified (principal); G92 Toxic encephalopathy; E11.9 Type 2 diabetes mellitus without complications; R56.9 Unspecified convulsions; R32 Unspecified urinary incontinence; B35.9 Dermatophytosis, unspecified; R15.9 Full incontinence of feces; J40 Bronchitis, not specified as acute or chronic; G93.89 Other specified disorders of brain; N31.9 Neuromuscular dysfunction of bladder, unspecified; B96.1 Klebsiella pneumoniae [K. pneumoniae] as the cause of diseases classified elsewhere; E66.9 Obesity, unspecified; Z68.31 Body mass index [BMI] 31.0-31.9, adult; Z87.820 Personal history of traumatic brain injury; Z86.718 Personal history of other venous thrombosis and embolism; Z99.3 Dependence on wheelchair; Z91.19 Patient's noncompliance with other medical treatment and regimen; Z79.01 Long term (current) use of anticoagulants; Z79.84 Long term (current) use of oral hypoglycemic drugs; Z98.2 Presence of cerebrospinal fluid drainage device; Z93.0 Tracheostomy status; Z88.0 Allergy status to penicillin

== ENCOUNTER 2019-01-12 19:25 | Inpatient (IN) | payer BC ==
[2019-01-12] MEDS ORDERED: Dextrose 50% SYRINGE Inj (50 ml) IV PRN (20:02)
[2019-01-12] MEDS: Meropenem IV 1 gm in NS 1 GM/50 ML BAG IVPB SCH (21:35)
[2019-01-12] MEDS: Insulin Reg-MEDIUM-Coverage SC SCH (21:35)
[2019-01-12] MEDS ORDERED: MEROPENEM 500 MG in NS 500 MG/50 ML BAG IVPB SCH (22:00)
[2019-01-13] MEDS: Meropenem IV 1 gm in NS 1 GM/50 ML BAG IVPB SCH ×3 (06:04→21:13)
[2019-01-13] MEDS: Insulin Reg-MEDIUM-Coverage SC SCH ×4 (06:42→22:06)
[2019-01-13] MEDS: Nystatin 100,000 Units/gm Topical Pow(15 gm) TOP SCH ×2 (09:50→17:38)
--- NOTE | 2019-01-13 16:31 | CON ---
DATE OF CONSULTATION: 01/13/2019 The patient is seen in room 314. CHIEF COMPLAINT: Weakness times several days. HISTORY OF PRESENT ILLNESS: This is a 48-year-old male, who was admitted to the acute care initially on the with change in mental status and the patient with a history of traumatic brain injury, admitted with change in mental status and discovered to have urinary tract infection and is being treated. The patient did have Klebsiella in the urine. His mental status is back to his baseline now in the Transitional Care. REVIEW OF SYSTEMS: Reveals 12-point review systems is performed. PAST MEDICAL HISTORY: Significant for traumatic brain injury and seizures. PAST SURGICAL HISTORY: None. ALLERGIES: THE PATIENT IS ALLERGIC TO PENICILLIN. MEDICATIONS: Reviewed. PHYSICAL EXAMINATION: VITAL SIGNS: Temperature is 97, blood pressure is 140 and 80, respiratory rate of 18, heart rate of 78. HEENT: Examination of HEENT is unremarkable. NECK: Supple. LUNGS: Have decreased breath sounds. HEART: Normal S1, S2. ABDOMEN: Soft. LABORATORY DATA: Chemistries are noted. Urinalysis is noted and the patient's HIV is negative and microbiology with Klebsiella pneumonia, relatively with sensitive organism with the exception of ampicillin. ASSESSMENT AND PLAN: A 48-year-old male with a history of traumatic brain injury and seizures, WHO IS ALLERGIC TO PENICILLIN, admitted with change in mental status, found to be secondary to Klebsiella urinary tract infection and treated with meropenem, today is day #7 and would complete 7-10 days. Should have Urology evaluation, as the patient's PSA is only 2. Since the patient is on warfarin, we will continue with the meropenem for now. Dino Alanis MD
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
--- NOTE | 2019-01-14 00:36 | PN ---
DATE: 01/13/2019 DAILY PROGRESS NOTE Oscar was admitted to transitional care unit yesterday and seen by Dr. Jas Quiros. He was oriented to the unit and has begin physical therapy. We will continue to follow up. Ant Quiros MD MTDTalya
[2019-01-14] MEDS: Meropenem IV 1 gm in NS 1 GM/50 ML BAG IVPB SCH ×3 (05:56→21:33)
[2019-01-14] MEDS: Insulin Reg-MEDIUM-Coverage SC SCH ×4 (06:29→22:19)
[2019-01-14] MEDS: Nystatin 100,000 Units/gm Topical Pow(15 gm) TOP SCH ×2 (09:54→17:14)
--- NOTE | 2019-01-14 22:56 | CP.PCM.PN ---
Subjective - Date & Time of Evaluation Date of Evaluation: 01/14/19 Time of Evaluation: 08:05 - Subjective Subjective: Comfortable in bed, not in distress. Objective - Vital Signs/Intake and Output Vital Signs (last 24 hours): Temp Pulse Resp BP Pulse Ox 98.2 F 88 18 124/81 93 L 01/13/19 16:00 01/13/19 16:00 01/13/19 16:00 01/13/19 16:00 01/13/19 16:00 Intake and Output: 01/13/19 01/14/19 18:59 06:59 Intake Total 340 Balance 340 - Medications Medications: Current Medications Dextrose (Dextrose 50% Inj) 0 ml IV STAT PRN; Protocol PRN Reason: Hypoglycemia Protocol Glipizide (Glucotrol) 10 mg PO ACB SHIRIN; Protocol Last Admin: 01/13/19 07:50 Dose: 10 mg Meropenem (Merrem Iv 1 Gm Premix) 1 gm in 50 mls @ 100 mls/hr IVPB Q8 SHIRIN; Protocol Stop: 01/20/19 14:01 Last Admin: 01/13/19 21:13 Dose: 100 mls/hr Insulin Human Regular (Humulin R Med) 0 units SC ACHS SHIRIN; Protocol Last Admin: 01/13/19 22:06 Dose: Not Given Nystatin (Nystop Topical Powder) 0 gm TOP BID SHIRIN; Protocol Last Admin: 01/13/19 17:38 Dose: 1 applic Warfarin Sodium (Coumadin) 5 mg PO 1800 SHIRIN; Protocol Last Admin: 01/13/19 17:38 Dose: 5 mg - Constitutional Appears: Chronically Ill - Head Exam Head Exam: NORMAL INSPECTION - Respiratory Exam Respiratory Exam: Decreased Breath Sounds - Cardiovascular Exam Cardiovascular Exam: +S1, +S2 - GI/Abdominal Exam GI & Abdominal Exam: Soft. absent: Tenderness Assessment and Plan - Assessment and Plan (Free Text) Plan: Assessment complicated UTI with Klebsiella traumatic brain injury Plan continue Merrem day 8 to complete up to 10 days of therapy
[2019-01-15] MEDS: Meropenem IV 1 gm in NS 1 GM/50 ML BAG IVPB SCH ×3 (05:13→22:18)
[2019-01-15] MEDS: Insulin Reg-MEDIUM-Coverage SC SCH ×4 (07:00→21:27)
[2019-01-15 07:17] LABS: INR 1.34; PROTHROMBIN TIME 15.1 SECONDS (9.4-12.5)
[2019-01-15] MEDS: Nystatin 100,000 Units/gm Topical Pow(15 gm) TOP SCH ×2 (11:00→17:25)
--- NOTE | 2019-01-15 20:16 | CP.PCM.PN ---
Subjective - Date & Time of Evaluation Date of Evaluation: 01/15/19 Time of Evaluation: 07:05 - Subjective Subjective: Comfortable in bed, no SOB at rest, no cough, no abdominal pain, no fevers. Objective - Vital Signs/Intake and Output Vital Signs (last 24 hours): Temp Pulse Resp BP Pulse Ox 97.8 F 85 20 148/81 94 L 01/14/19 16:00 01/14/19 16:00 01/14/19 16:00 01/14/19 16:00 01/14/19 16:00 - Medications Medications: Current Medications Dextrose (Dextrose 50% Inj) 0 ml IV STAT PRN; Protocol PRN Reason: Hypoglycemia Protocol Glipizide (Glucotrol) 10 mg PO ACB SHIRIN; Protocol Last Admin: 01/14/19 08:02 Dose: 10 mg Meropenem (Merrem Iv 1 Gm Premix) 1 gm in 50 mls @ 100 mls/hr IVPB Q8 SHIRIN; Protocol Stop: 01/20/19 14:01 Last Admin: 01/14/19 21:33 Dose: 100 mls/hr Insulin Human Regular (Humulin R Med) 0 units SC ACHS SHIRIN; Protocol Last Admin: 01/14/19 22:19 Dose: Not Given Nystatin (Nystop Topical Powder) 0 gm TOP BID SHIRIN; Protocol Last Admin: 01/14/19 17:14 Dose: 1 applic Warfarin Sodium (Coumadin) 5 mg PO 1800 SHIRIN; Protocol Last Admin: 01/14/19 17:13 Dose: 5 mg - Constitutional Appears: Non-toxic, Chronically Ill - Head Exam Head Exam: NORMAL INSPECTION - Respiratory Exam Respiratory Exam: Decreased Breath Sounds - Cardiovascular Exam Cardiovascular Exam: +S1, +S2 - GI/Abdominal Exam GI & Abdominal Exam: Soft. absent: Tenderness Assessment and Plan - Assessment and Plan (Free Text) Plan: Assessment complicated UTI with Klebsiella traumatic brain injury Plan continue Merrem day 9 to complete up to 10 days of therapy
[2019-01-16] MEDS: Meropenem IV 1 gm in NS 1 GM/50 ML BAG IVPB SCH ×3 (06:28→21:25)
[2019-01-16] MEDS: Insulin Reg-MEDIUM-Coverage SC SCH ×4 (06:41→22:10)
--- NOTE | 2019-01-16 09:13 | PN ---
DATE: 01/16/2019 SUBJECTIVE: The patient is in bed, in no acute distress, nontoxic. No fevers and chills. PHYSICAL EXAMINATION VITAL SIGNS: Temperature is 98, blood pressure is 119/70 and respiratory rate is 16. HEENT: Unremarkable. NECK: Supple. LUNGS: Decreased breath sounds. HEART: Normal S1 and S2. ABDOMEN: Soft. LABORATORY EXAMINATION: Reviewed. ASSESSMENT AND PLAN: This is a 48-year-old male who was admitted with complicated Klebsiella urinary tract infection, with history of traumatic brain injury, today is day #10 of 10 days. We will discontinue meropenem after today's last dose. Review of orders confirm the patient's . Dino Alanis MD
[2019-01-16] MEDS: Nystatin 100,000 Units/gm Topical Pow(15 gm) TOP SCH ×2 (09:52→17:09)
--- NOTE | 2019-01-16 18:53 | PN ---
DATE: 01/16/2019 SUBJECTIVE: The patient is a 48-year-old male with a history positive for traumatic brain injury, noninsulin-dependent diabetes and morbid obesity. He was admitted to the [facility] on 01/06/2019 with altered mental status, found to have a Klebsiella pneumonia urinary tract infection. This was treated with antibiotics. The patient's of mental status improved and arrangements were made for him to be transferred to the Transitional Care Unit for physical therapy. He was on the Transitional Care Unit since 01/12/2019 and is doing very well. When seen today, his mother was at bedside. PHYSICAL EXAMINATION GENERAL: The patient is in good spirits. He answers questions appropriately. VITAL SIGNS: He is afebrile. Blood pressure is 119/78 and heart rate is 95 beats per minute. CARDIOPULMONARY: Heart is regular. LUNGS: His lungs are clear. ABDOMEN: Soft and nontender. ASSESSMENT AND PLAN: He was being followed by Dr. Alanis and Dr. Davila, the Infectious Disease specialists. Today is his last day on meropenem for the urinary tract infection. Physical therapy is encouraged and we will continue to follow the patient closely. Jas Quiros MD
[2019-01-17] MEDS: Insulin Reg-MEDIUM-Coverage SC SCH ×4 (06:54→21:30)
[2019-01-17] MEDS: Nystatin 100,000 Units/gm Topical Pow(15 gm) TOP SCH ×2 (09:22→17:41)
[2019-01-17 12:07] LABS: INR 1.41; PROTHROMBIN TIME 15.9 SECONDS (9.4-12.5)
--- NOTE | 2019-01-18 01:22 | PN ---
DATE: 01/17/2019 SUBJECTIVE: The patient is seen in bed, in no acute distress, nontoxic. PHYSICAL EXAMINATION: VITAL SIGNS: Temperature is 97, blood pressure is 120/70, respiratory rate of 18, heart rate of 86. HEENT: Unremarkable. NECK: Supple. LUNGS: Decreased breath sounds. HEART: Normal S1 and S2. ABDOMEN: Soft. LABORATORY DATA: Reveals the patient's chemistries are noted. ASSESSMENT AND PLAN: A 48-year-old male who was admitted with complicated Klebsiella urinary tract infection, history of traumatic brain injury, has had 10 days of meropenem. The patient is doing well, currently off antibiotics. Dr. Jas Quiros's note from yesterday is reviewed. We will follow with you. Dino Alanis MD
[2019-01-18] MEDS: Insulin Reg-MEDIUM-Coverage SC SCH ×4 (06:49→22:26)
[2019-01-18] MEDS: Nystatin 100,000 Units/gm Topical Pow(15 gm) TOP SCH ×2 (09:51→17:03)
--- NOTE | 2019-01-18 12:49 | PN ---
DATE: 01/18/2019 SUBJECTIVE: The patient is in bed today, in no acute distress. He is doing well. PHYSICAL EXAMINATION: VITAL SIGNS: Temperature is 98, blood pressure is 136/80 and respiratory rate of 18. HEENT: Unremarkable. NECK: Supple. LUNGS: Decreased breath sounds. HEART: Normal S1 and S2. ABDOMEN: Soft and nontender. LABORATORY DATA: Reviewed review of orders reveals the patient is now off of any antibiotics. ASSESSMENT AND PLAN: A 48-year-old male who was see earlier today, was admitted with complicated Klebsiella urinary tract infection. The patient with a history of traumatic brain injury and completed 10 days of meropenem, currently off of antibiotics, afebrile. Should have a Urology evaluation. Dino Alanis MD
[2019-01-19] MEDS: Insulin Reg-MEDIUM-Coverage SC SCH ×4 (07:29→22:10)
[2019-01-19] MEDS: Nystatin 100,000 Units/gm Topical Pow(15 gm) TOP SCH ×2 (10:26→17:22)
[2019-01-19 11:13] LABS: INR 2.1; PROTHROMBIN TIME 23.7 SECONDS (9.4-12.5)
--- NOTE | 2019-01-19 11:13 | PN ---
DATE: 01/19/2019 SUBJECTIVE: The patient is in bed in no acute distress, nontoxic. PHYSICAL EXAMINATION: VITAL SIGNS: Temperature 98, blood pressure 130/80, respiratory rate 18. HEENT: Examination of HEENT is unremarkable. NECK: Supple. LUNGS: Decreased breath sounds. HEART: Normal S1, S2. ABDOMEN: Soft. LABORATORY DATA: Laboratory examination are reviewed. Review of orders reveals the patient now is off antibiotics. The patient is on Coumadin and glipizide. ASSESSMENT AND PLAN: This is a 48-year-old male who was seen earlier today, who was admitted with complicated Klebsiella urinary tract infection, history of traumatic brain injury, completed 10 days of meropenem. Currently, review of orders reveals off antibiotics. No evidence of infection. Should have Urology evaluation if there is a complicated urinary tract infection. Dino Alanis MD
[2019-01-19] MEDS: guaiFENesin-DM 600-30 mg ER Tab PO SCH (21:16)
[2019-01-20] MEDS ORDERED: Pantoprazole 40 mg EC Tab PO SCH (06:00)
[2019-01-20] MEDS: Insulin Reg-MEDIUM-Coverage SC SCH ×2 (06:41→12:15)
[2019-01-20] MEDS: guaiFENesin-DM 600-30 mg ER Tab PO SCH (10:57)
[2019-01-20] MEDS: Nystatin 100,000 Units/gm Topical Pow(15 gm) TOP SCH (10:58)
[2019-01-20 14:19] VITALS: BP 125/81; PULSE 96; RESP 14; TEMP 98.3; O2SAT 94
[2019-01-20] MEDS ORDERED: Pantoprazole 40 mg EC Tab PO ONE (16:15)
--- NOTE | 2019-01-20 23:05 | PN ---
DATE: 01/20/2019 SUBJECTIVE: Patient is seen early this morning. No fevers or chills. No nausea. PHYSICAL EXAMINATION VITAL SIGNS: Temperature is 98, blood pressure is 120/80, respiratory rate of 18. HEENT: Unremarkable. NECK: Supple. LUNGS: Decreased breath sounds. HEART: Normal S1, S2. ABDOMEN: Soft. LABORATORY DATA: Reveals the patient's labs are reviewed. ASSESSMENT AND PLAN: This is a 48-year-old who was seen early this morning in 314. He is awake and he is back to his baseline mental status, cooperative, answered to question, but has limited speech with a history of traumatic brain injury and complicated Klebsiella urinary tract infection. He has completed 10 days of meropenem currently. Now the patient is off of antibiotics. Patient is to follow up with Urology. Dino Alanis MD
--- NOTE | 2019-01-21 03:43 | DS ---
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 He now comes to Transitional Care Unit for additional physical therapy and conditioning prior to return home. It is the patient and his mother's wishes come to our TCU over [facility], which had also accepted him because of the proximity and fine physical therapy available here. During the course of the patient's stay on TCU, he engage in the activities of the unit, participated in aggressive physical therapy. I constantly encourage the patient as well as the physical therapists to increase their regimen with him as he had been ambulatory in his apartment with a walker as little as 3 or 4 months ago. Unfortunately, the patient's activity level although had improved dramatically, did not come up to that level of several months ago, mostly I believe as a result of his traumatic brain injury. Unfortunately, this may reveal a slow decline in his overall condition, but we will need to follow closely. With this improvement and ambulating with assistance and on the parallel bars, he was ready for discharge to home. Arrangements were made for visiting nurse and home physical therapy. He will continue his Coumadin and his diabetes medicines. FINAL DISCHARGE DIAGNOSES: 1. Deconditioning due to urinary tract infection. 2. Urinary tract infection. 3. Diabetes. 4. Morbid obesity. 5. Tinea cruris. 6. Traumatic brain injury. PLAN: I will see the patient in house call within the next one to two weeks. Ant Quiros MD
== END 2019-01-20 15:21 | disposition home or self-care (01) | DRG 690 ==
LOC: TRCU 19:25
PROVIDERS: ADMIT Internal Medicine; ATTEND Internal Medicine
PROC: 3E03329 Introduction of Other Anti-infective into Peripheral Vein, Percutaneous Approach (ICD-10-PCS; 2019-01-12)
PROC: F07L6ZZ Therapeutic Exercise Treatment of Musculoskeletal System - Lower Back / Lower Extremity (ICD-10-PCS; principal; 2019-01-14)
PROC: F07Z8FZ Transfer Training Treatment using Assistive, Adaptive, Supportive or Protective Equipment (ICD-10-PCS; 2019-01-15)
PROC: F08Z2ZZ Grooming/Personal Hygiene Treatment (ICD-10-PCS; 2019-01-15)
PROC: F08Z1FZ Dressing Techniques Treatment using Assistive, Adaptive, Supportive or Protective Equipment (ICD-10-PCS; 2019-01-15)
PROC: F07Z9FZ Gait Training/Functional Ambulation Treatment using Assistive, Adaptive, Supportive or Protective Equipment (ICD-10-PCS; 2019-01-16)
DX: N39.0 Urinary tract infection, site not specified (principal); B96.1 Klebsiella pneumoniae [K. pneumoniae] as the cause of diseases classified elsewhere; R41.82 Altered mental status, unspecified; E66.01 Morbid (severe) obesity due to excess calories; B35.6 Tinea cruris; R56.9 Unspecified convulsions; E11.9 Type 2 diabetes mellitus without complications; Z79.84 Long term (current) use of oral hypoglycemic drugs; Z79.01 Long term (current) use of anticoagulants; Z87.820 Personal history of traumatic brain injury; Z88.0 Allergy status to penicillin; Z68.31 Body mass index [BMI] 31.0-31.9, adult